=== PATIENT | female | born 1940 | race Caucasian/White ===

== ENCOUNTER → 2016-08-24 | Outpatient (CLI) | payer MEDICARE, BC ==
[~2016-08-24] MED LIST: ARICEPT10 MG PO; CALCIUM 600 +1 EACH PO; CALCIUM600 MG PO; MOBIC7.5 MG PO; OMEPRAZOLE40 MG PO; PROLIA60 MG/ML SUB-Q; VITAMIN D250000 UNIT PO; ZOCOR10 MG PO; ZOLOFT50 MG PO
== END | disposition disaster alternative care site (69) ==
LOC: GPOC 08-12 10:30 → GOPD 08-12 10:30 → GRAD 08-13 13:30 → GBCOE 08-16 12:00 → GOPP 08-16 12:00 → GOPD 08-17 10:00
PROC: 0HBT3ZX Excision of Right Breast, Percutaneous Approach, Diagnostic (ICD-10-PCS; principal; 2016-08-24)
DX: C50.911 Malignant neoplasm of unspecified site of right female breast (principal)
CPT/HCPCS: J7050

== ENCOUNTER → 2016-12-27 | Outpatient (CLI) | payer MEDICARE, BC | END | disposition disaster alternative care site (69) | LOC: GRAD 13:15 | DX: N17.9 Acute kidney failure, unspecified (principal); N26.1 Atrophy of kidney (terminal) ==